=== PATIENT | male | born 1965 | race Caucasian/White ===

== ENCOUNTER → 2017-07-09 13:36 | Outpatient (CLI) | payer BC, SELFPAY ==
--- NOTE | 2017-07-09 13:40 | CA_ITS ---
PROCEDURE: 2-D M-mode and color Doppler study INDICATIONS FOR THE TEST: Chest pain COPD+ Heart Murmur Tobacco Smoking+ Palpitations Fatigue Syncope Edema Hypertension+Diabetes Mellitus Rheumatic Fever SOB+TRINIDAD Obesity+Hyperlipidemia+ Family History HD Additional History cad, stent, CM PATIENT INFORMATION HEIGHT: 64 WEIGHT: 260 GENDER: Male B/P: 120/48 2-D/M-MODE INTERPRETATION: 2-D MEASUREMENTS OBSERVED VALUES IN CMS Right Ventricular Dimension (RVDd) 2.8 Interventricular Septum (Thickness)(IVsd) 1.0 Left Ventricular Internal Dimensions(LVIDd) 4.7 Left Ventricular Posterior Wall (Thickness)(LVPWd) 1.0 Aortic Root 2.0 Aortic Cusp Separation 2.3 Left Atrial Dimensions (LAD) 2.9 2D 1. Left atrium is normal size, left ventricle is normal size, there is no concentric left ventricular hypertrophy, visually estimated ejection fraction 55% with no obvious regional wall motion abnormality, endocardial surfaces are poorly visualized. 2. The right atrium and right ventricle are normal size and contractility. 3. The aortic valve is minimally thickened and fibrosed. 4. The mitral and tricuspid valve leaflets are minimally thickened. 5. Pulmonic valve is poorly visualized. 6. No significant pericardial effusion noted. DOPPLER INTERROGATION: Doppler interrogation of the aortic, mitral and tricuspid valvular presence of mild mitral and tricuspid regurgitation, tricuspid and jet velocity insufficient for calculation of the right ventricular systolic pressure, diastolic parameters are inconclusive. CONCLUSION: 1. Normal left ventricular size, preserved left ventricular systolic function, visually estimated ejection fraction 55% with no obvious regional wall motion abnormality, diastolic parameters are inconclusive. 2. Mild mitral and tricuspid regurgitation 3. No significant pericardial effusion noted.
== END ==
PROVIDERS: PCP Nurse Practitioner Family; Visit Provider Internal Medicine
DX: I42.9 Cardiomyopathy, unspecified (principal)
CPT/HCPCS: 93306

== ENCOUNTER → 2019-06-09 12:27 | Outpatient (CLI) | payer BC, SELFPAY ==
[2019-06-09 14:41] LABS: Chloride 105 mmol/L (98-107); Sodium 142 mmol/L (136-145)
[2019-06-09 14:42] LABS: Potassium 3.9 mmoL/L (3.5-5.1)
[2019-06-09 14:44] LABS: Alanine Aminotransferase 20 U/L (12-78); Albumin Level 4.1 g/dl (3.5-5.0); Alkaline Phosphatase 103 U/L (38-126); Anion Gap 11.9 mEq/L (5-15); Aspartate Amino Transferase 24 U/L (17-59); Bilirubin,Indirect 0.3 mg/dL (0.0-0.9); Bilirubin,Total 0.3 mg/dl (0.2-1.3); Bilirubin,Unconjugated 0.4 mg/dL (0.0-1.1); Blood Urea Nitrogen 10 mg/dl (9-20); Calcium 9.5 mg/dl (8.4-10.2); Carbon Dioxide 29 mmol/L (22.0-30.0); Cholesterol 159 mg/dl (140-200); Estimated Glomerular Filt Rate 70 ml/min (>60); GFR (African American) 84 ML/MIN (>60); Glucose 80 mg/dl (74-100); Total Protein,Serum 7.2 g/dl (6.3-8.2); Triglycerides 157 mg/dl (30-150); VLDL Cholesterol 31 mg/dL (0-40)
[2019-06-09 14:45] LABS: Chol/HDL Ratio 6.9 (1-3.5); HDL Cholesterol 23 mg/dl (40-60)
[2019-06-09 14:56] LABS: Direct LDL Cholesterol 112.93 mg/dL (100-129)
== END ==
PROVIDERS: Visit Provider Internal Medicine Cardiovascular Disease
DX: I25.10 Atherosclerotic heart disease of native coronary artery without angina pectoris (principal); E78.2 Mixed hyperlipidemia; E66.9 Obesity, unspecified
CPT/HCPCS: 36415; 80048; 80061; 80076

== ENCOUNTER → 2019-09-08 12:33 | Outpatient (CLI) | payer BC, SELFPAY ==
[2019-09-08 13:45] LABS: Alanine Aminotransferase 34 U/L (12-78); Albumin Level 4.3 g/dl (3.5-5.0); Alkaline Phosphatase 122 U/L (38-126); Aspartate Amino Transferase 31 U/L (17-59); Bilirubin,Indirect 0.2 mg/dL (0.0-0.9); Bilirubin,Total 0.2 mg/dl (0.2-1.3); Bilirubin,Unconjugated 0.2 mg/dL (0.0-1.1); Chol/HDL Ratio 1.8 (1-3.5); Cholesterol 86 mg/dl (140-200); HDL Cholesterol 49 mg/dl (40-60); Total Protein,Serum 7.4 g/dl (6.3-8.2); Triglycerides 83 mg/dl (30-150); VLDL Cholesterol 17 mg/dL (0-40)
[2019-09-08 13:57] LABS: Direct LDL Cholesterol 43.12 mg/dL (100-129)
== END ==
PROVIDERS: Visit Provider Internal Medicine Cardiovascular Disease
DX: I25.10 Atherosclerotic heart disease of native coronary artery without angina pectoris (principal); I11.9 Hypertensive heart disease without heart failure; E78.5 Hyperlipidemia, unspecified; F17.200 Nicotine dependence, unspecified, uncomplicated; G47.33 Obstructive sleep apnea (adult) (pediatric); Z95.5 Presence of coronary angioplasty implant and graft; Z99.89 Dependence on other enabling machines and devices
CPT/HCPCS: 36415; 80061; 80076

== ENCOUNTER 2020-01-10 14:43 | Emergency (ER) | payer BC, SELFPAY ==
--- NOTE | 2020-01-10 15:09 | XR_ITS ---
PROCEDURE: XR CHEST 2V CLINICAL HISTORY: cough COMPARISON: CR CXR CHEST(2 VIEWS-NOT PORTABLE) from 10/19/2014 CR CXR CHEST(2 VIEWS-NOT PORTABLE) from 03/09/2015 FINDINGS: The cardiomediastinal silhouette and pulmonary vascularity are within normal limits. The lungs are clear without infiltrates, suspicious nodules, or pleural effusions. No acute bony abnormalities. IMPRESSION: No acute findings. Dictated by: Nahum Davila MD 01/10/2020 15:38 Nahum Davila MD in [place] 01/10/2020 15:38
[2020-01-10 15:12] VITALS: BP 163/100; PULSE 82; RESP 18; TEMP 36.8; O2SAT 97; BMI 45.1
[2020-01-10 15:22] VITALS: BP 163/100; PULSE 82; RESP 18; TEMP 36.8; O2SAT 98
--- NOTE | 2020-01-10 15:22 | HMH.EDUTC ---
[facility] [place] Clinical Impression: Encounter for laboratory testing for COVID-19 virus Fever Qualifiers: Fever type: unspecified Qualified Code(s): R50.9 - Fever, unspecified Disposition: Home, Self-Care Condition on Discharge: Good Instructions: DI for Fever (Symptom) -- Adult, Preventing the Spread of Coronavirus Discharge Instructions Additional Instructions: *Monitor Temp, Over the counter Motrin or Tylenol as directed/as needed Tylenol every 4 hours and Motrin every 6 hours (as long as your family doctor has told you that you can take it) for fever or pain. and straight to ER if unable to lower temp less than 101.0 after medication given *Warm salt water gargles may help to soothe the throat *Throat Lozenges *Warm fluids like tea with honey may help to soothe the throat *Sleep elevated *Humidifier/Vaporizer Your throat swab was sent for culture. Those results are typically sent to your primary care. Be sure to follow up in 2-3 days with your family doctor/primary care physician if no improvement so they can review those result and treat if necessary. If you don?t have a primary care doctor, I recommend you get one but in the mean time, you will have to return to a walk in clinic Follow up IMMEDIATELY for new or worsening symptoms or no Noticeable improvement over the next 48-72 hours. 911 for difficulty breathing or swallowing make sure to follow up with your Family Doctor for re-evaluation of blood pressure You was tested for today for COVID19 your test result should be back within the next 48-72 hours, call back to the [facility] to see if your test results are back and the result You was given a handout with instructions for Self Quarantine and Self isolation for while you wait on test results and what to do if they are positive Referrals: Ludmila Lane APRN [Primary Care Provider] - As needed Forms: Work/School Release Medical Decision Making - George Inquiry Pt receiving controlled substance: No George was queried for this patient: No Vital Signs: 01/10/20 15:12 01/10/20 15:22 Temperature 98.3 F 98.3 F Temperature Source Oral Pulse Rate 82 Pulse Rate [Left] 82 Respiratory Rate 18 18 Blood Pressure 163/100 H Blood Pressure [Right Arm] 163/100 H Blood Pressure Mean [Right Arm] 121 Blood Pressure Source [Right Arm] Automatic Cuff Blood Pressure Position [Right Arm] Sitting 02 Sat by Pulse Oximetry 97 Oxygen Delivery Method Room Air - Lab Data Lab Results 01/10/20 15:10: Influenza Type A Ag Negative, Influenza Type B Ag Negative 01/10/20 15:10: Strep Scn Rapid Clinic Negative Orders (Tests/Meds): ORDERS Category Date Time Status Covid-19 Nasal PCR Sendout Robe Stat Lab 01/10/20 15:43 Received Strep Screen Confirmation Stat Micro 01/10/20 15:10 Received - Radiology Data #1 Image(s): Chest Image Reviewed: Yes I have reviewed radiologist's interpretation No acute findings. [facility] [place] - General Stated complaint: fever Time Seen by Provider: 01/10/20 15:23 Mode of Arrival: Ambulatory Source of Information: Significant Other Limitations: No Limitations Description of Symptoms (Recalled from Triage Doc. by RN): Fever and headache HEENT Symptoms (Recalled from RN notes): Yes Resp Symptoms (Recalled from RN notes): Yes Skin Symptoms (Recalled from RN notes): No MS Symptoms (Recalled from RN notes): No Functional Status (Recalled from RN notes): wnl - History of Present Illness Provider Complaint: Patient states that yesterday he had fever and headache States that he was going to go into work today and they wouldnt let him work until he got a COVID test States that he called his family doctor and they wanted him to have a chest xray too States that he has a history of COPD and always has a cough but no more than usual - Related Data Home Medications Medication Instructions Recorded Confirmed albuterol sulfate 90 mcg/actuation 2 inh INHALATION Q4-6H 07/05
[2020-01-10 17:13] LABS: UTC Influenza A Antigen Negative (Negative); UTC Influenza B Antigen Negative (Negative); UTC Strep Screen (Rapid) Negative (Negative)
[2020-01-12 14:19] LABS: Covid-19 Nasal PCR Sendout Lex NOT DETECTED
--- NOTE | 2020-01-14 17:05 | PC.NURSE ---
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
== END 2020-01-10 16:01 | disposition home or self-care (01) ==
PROVIDERS: Emergency Provider Nurse Practitioner; PCP Nurse Practitioner Family
DX: Z20.828 Contact with and (suspected) exposure to other viral communicable diseases (principal); J44.9 Chronic obstructive pulmonary disease, unspecified; I25.10 Atherosclerotic heart disease of native coronary artery without angina pectoris; E78.5 Hyperlipidemia, unspecified; I10 Essential (primary) hypertension; Z79.899 Other long term (current) drug therapy
CPT/HCPCS: 71046; 87804; 87880; 99202; U0004

== ENCOUNTER 2020-02-19 09:41 | Emergency (ER) | payer BC, SELFPAY ==
[2020-02-19 10:20] VITALS: BP 188/85; PULSE 73; RESP 16; TEMP 36.9; O2SAT 95; BMI 44.6
--- NOTE | 2020-02-19 10:21 | HMH.EDUTC ---
[facility] [place] Disposition Clinical Impression: Exposure to COVID-19 virus Disposition: Home, Self-Care Condition on Discharge: Good Instructions: Preventing the Spread of Coronavirus Discharge Instructions Additional Instructions: Drink plenty of fluids. Take tylenol for pain or fever. Follow up with your regular doctor. GO TO THE ER FOR ANY WORSENING SYMPTOMS Referrals: Ludmila Lane APRN [Primary Care Provider] - Forms: Work/School Release Time of Disposition: 10:25 Medical Decision Making - Medical Records Medical records reviewed: No: I reviewed the patient's medical records. - George Inquiry Pt receiving controlled substance: No Vital Signs: 02/19/20 10:20 02/19/20 10:27 Temperature 98.5 F 98.5 F Temperature Source Oral Pulse Rate 73 Pulse Rate [Left Brachial] 73 Respiratory Rate 16 16 Blood Pressure 188/85 H Blood Pressure [Left Arm] 188/85 H Blood Pressure Mean [Left Arm] 119 Blood Pressure Source [Left Arm] Automatic Cuff Blood Pressure Position [Left Arm] Sitting 02 Sat by Pulse Oximetry 95 Oxygen Delivery Method Room Air Orders (Tests/Meds): ORDERS Category Date Time Status Covid-19 Nasal PCR ([facility]) Routine Lab 02/19/20 10:00 Received [facility] [place] HPI - General Stated complaint: covid exposure Time Seen by Provider: 02/19/20 10:21 - History of Present Illness Provider Complaint: He was exposed to covid at his work last week. He denies any symptoms, but he needs to be tested for covid. - Related Data Home Medications Medication Instructions Recorded Confirmed albuterol sulfate 90 mcg/actuation 2 inh INHALATION Q4-6H 07/05/17 07/13/18 breath activated powder inhaler pantoprazole 40 mg tablet,delayed 40 mg PO QAM PRN 09/08/19 release Previous Rx's Medication Instructions Recorded aspirin 81 mg tablet,delayed 81 mg PO DAILY #30 tab 01/25/18 release bisoprolol fumarate 5 mg tablet 5 mg PO DAILY #30 tab 11/08/19 evolocumab 140 mg/mL subcutaneous 140 mg SQ Q2W #2 ml 11/08/19 pen injector losartan 100 1 tab PO DAILY #30 tab 11/08/19 mg-hydrochlorothiazide 12.5 mg tablet Allergies Allergy/AdvReac Type Severity Reaction Status Date / Time diphenhydramine Allergy Intermediate I-HIVES Verified 09/08/19 11:29 [From Benadryl] levofloxacin [From Levaquin] Allergy Intermediate I-HIVES Verified 09/08/19 11:29 atorvastatin [From Lipitor] AdvReac Severe leg pain Verified 09/08/19 11:29 rosuvastatin [From Crestor] AdvReac Severe leg Verified 09/08/19 11:29 cramps, pain, jumping legs [facility] History - Hepatitis A Screen Attestation statement:: This patient has been screened for Hepatitis A risk factors. I have reviewed the patient's past medical history: Yes Medical History: Reports:: Cardiomyopathy, Coronary Artery Disease, Hyperlipidemia, Hypertension Denies:: Cancer, Diabetes Mellitus Type 1, Diabetes Mellitus Type 2, Internal Pacemaker, MRSA Comment: IDALIA-CPAP Laterality Cases: Bilateral: Myringotomy (Ear Tubes), Tonsillectomy Other Surgeries: Yes: Cardiac Catheterization. No: Pacemaker Amputation: No Fractures: No - Social History Smoking Status: Current every day smoker Tobacco Type: cigarettes # Packs/Day (cigarettes): 1 Alcohol Intake: never Alcohol Intake Frequency:: holidays/special occasions only Substance Use Type: denies use Occupational Status: employed Family Hx:: No significant family history ROS Obtained: Yes All systems reviewed & no additional complaints - Constitutional Constitutional: Reports system reviewed and no additional complaints, except as docu - Eyes Eyes: Reports system reviewed and no additional complaints, except as docu - ENT Ears, Nose, Mouth, and Throat: Reports system reviewed and no additional complaints, except as docu - Cardiovascular Cardiovascular: Reports system reviewed and no additional complaints, except as docu - Respiratory Respiratory: Yes s
[2020-02-19 10:27] VITALS: BP 188/85; PULSE 73; RESP 16; TEMP 36.9; O2SAT 95
== END 2020-02-19 10:31 | disposition home or self-care (01) ==
PROVIDERS: Emergency Provider Nurse Practitioner Family; PCP Nurse Practitioner Family
DX: Z20.828 Contact with and (suspected) exposure to other viral communicable diseases (principal); I42.8 Other cardiomyopathies; I25.10 Atherosclerotic heart disease of native coronary artery without angina pectoris; I10 Essential (primary) hypertension; E78.5 Hyperlipidemia, unspecified; F17.210 Nicotine dependence, cigarettes, uncomplicated
CPT/HCPCS: 99201; U0003

== ENCOUNTER → 2020-03-13 08:30 | Outpatient (CLI) | payer BC, SELFPAY | PROVIDERS: PCP Nurse Practitioner Family; Visit Provider Urology | DX: R06.00 Dyspnea, unspecified (principal) | CPT/HCPCS: 93306 ==

== ENCOUNTER → 2020-05-02 14:11 | Outpatient (CLI) | payer BC, SELFPAY ==
[2020-05-02 18:30] LABS: Anion Gap 13.4 mEq/L (5-15); Blood Urea Nitrogen 28 mg/dl (9-20); Calcium 9.5 mg/dl (8.4-10.2); Carbon Dioxide 25 mmol/L (22.0-30.0); Chloride 104 mmol/L (98-107); Estimated Glomerular Filt Rate 49 ml/min (>60); GFR (African American) 59 ML/MIN (>60); Glucose 122 mg/dl (74-100); Potassium 4.4 mmoL/L (3.5-5.1); Sodium 138 mmol/L (136-145)
[2020-05-02 18:39] LABS: NT Pro Brain Natriuretic Pep. 316 pg/mL (0-125)
== END ==
PROVIDERS: Visit Provider Internal Medicine Cardiovascular Disease
DX: R06.00 Dyspnea, unspecified (principal); I25.10 Atherosclerotic heart disease of native coronary artery without angina pectoris; I42.9 Cardiomyopathy, unspecified; I11.9 Hypertensive heart disease without heart failure; E66.9 Obesity, unspecified; E78.2 Mixed hyperlipidemia; F17.200 Nicotine dependence, unspecified, uncomplicated; G47.33 Obstructive sleep apnea (adult) (pediatric); Z95.5 Presence of coronary angioplasty implant and graft; Z99.89 Dependence on other enabling machines and devices
CPT/HCPCS: 36415; 80048; 83880

== ENCOUNTER → 2020-12-16 12:04 | Outpatient (CLI) | payer BC, SELFPAY ==
[2020-12-16 12:22] LABS: Basophils # 0.1 K/mm3 (0-0.2); Basophils % 0.8 % (0.1-2.0); Eosinophils # 0.5 K/mm3 (0.0-0.4); Eosinophils % 5.5 % (0.1-12.0); Hematocrit 46.2 % (42.0-52.0); Hemoglobin 15.4 g/dL (14.1-18.0); Lymphocytes % 23.8 % (10-50); Mean Corpuscular HGB Conc 33.2 g/dL (31.8-35.4); Mean Corpuscular Hemoglobin 30.2 pg (27.0-31.2); Mean Platelet Volume 8.3 fl (7.4-10.4); Monocytes # 0.7 K/mm3 (0.1-1.0); Monocytes % 8.5 % (1.7-9.3); Neutrophils # 5.2 K/mm3 (1.8-7.8); Neutrophils % 61.3 % (37.0-80.0); Platelet Count 209 K/mm3 (142-424); Red Blood Count 5.08 M/mm3 (4.60-6.20); Red Cell Distribution Width 14.5 % (11.5-17.5); White Blood Count 8.6 K/mm3 (4.8-10.8)
[2020-12-16 13:05] LABS: Chloride 105 mmol/L (98-107); Potassium 3.7 mmoL/L (3.5-5.1); Sodium 139 mmol/L (136-145)
[2020-12-16 13:07] LABS: Blood Urea Nitrogen 15 mg/dl (9-20); Estimated Glomerular Filt Rate 63 ml/min (>60); GFR (African American) 76 ML/MIN (>60)
[2020-12-16 13:08] LABS: Alanine Aminotransferase 51 U/L (12-78); Albumin Level 3.9 g/dl (3.5-5.0); Alkaline Phosphatase 103 U/L (38-126); Anion Gap 11.7 mEq/L (5-15); Aspartate Amino Transferase 43 U/L (17-59); Bilirubin,Direct 0.4 mg/dl (0.0-0.4); Bilirubin,Total 0.4 mg/dl (0.2-1.3); Carbon Dioxide 26 mmol/L (22.0-30.0); Chol/HDL Ratio 4.9 (1-3.5); Cholesterol 128 mg/dl (140-200); Glucose 129 mg/dl (74-100); HDL Cholesterol 26 mg/dl (40-60); Total Protein,Serum 6.9 g/dl (6.3-8.2); Triglycerides 188 mg/dl (30-150); VLDL Cholesterol 38 mg/dL (0-40)
[2020-12-16 13:19] LABS: Direct LDL Cholesterol 70.28 mg/dL (100-129)
== END ==
PROVIDERS: Visit Provider Urology
DX: I42.9 Cardiomyopathy, unspecified (principal); I25.10 Atherosclerotic heart disease of native coronary artery without angina pectoris; I11.9 Hypertensive heart disease without heart failure; E78.5 Hyperlipidemia, unspecified; G47.33 Obstructive sleep apnea (adult) (pediatric); F17.200 Nicotine dependence, unspecified, uncomplicated; Z95.5 Presence of coronary angioplasty implant and graft; Z99.89 Dependence on other enabling machines and devices
CPT/HCPCS: 36415; 80048; 80061; 80076; 85025

== ENCOUNTER → 2021-12-29 11:07 | Outpatient (CLI) | payer BC, SELFPAY ==
[2021-12-29 11:47] LABS: Basophils # 0.1 K/mm3 (0-0.2); Basophils % 1.9 % (0.1-2.0); Eosinophils # 0.4 K/mm3 (0.0-0.4); Eosinophils % 4.9 % (0.1-12.0); Hematocrit 50.4 % (42.0-52.0); Hemoglobin 16.6 g/dL (14.1-18.0); Lymphocytes # 1.8 K/mm3 (0.7-4.5); Lymphocytes % 23.8 % (10-50); Mean Corpuscular HGB Conc 32.9 g/dL (31.8-35.4); Mean Corpuscular Hemoglobin 30.3 pg (27.0-31.2); Mean Platelet Volume 8.5 fl (7.4-10.4); Monocytes # 0.9 K/mm3 (0.1-1.0); Monocytes % 11.5 % (1.7-9.3); Neutrophils # 4.3 K/mm3 (1.8-7.8); Neutrophils % 57.8 % (37.0-80.0); Platelet Count 193 K/mm3 (142-424); Red Blood Count 5.48 M/mm3 (4.60-6.20); Red Cell Distribution Width 14.9 % (11.5-17.5); White Blood Count 7.5 K/mm3 (4.8-10.8)
[2021-12-29 12:03] LABS: Alanine Aminotransferase 43 U/L (12-78); Albumin Level 3.8 g/dl (3.5-5.0); Alkaline Phosphatase 128 U/L (38-126); Anion Gap 10.6 mEq/L (5-15); Aspartate Amino Transferase 41 U/L (17-59); Bilirubin,Direct 0.1 mg/dl (0.0-0.4); Blood Urea Nitrogen 8 mg/dl (9-20); Calcium 8.5 mg/dl (8.4-10.2); Carbon Dioxide 26 mmol/L (22.0-30.0); Chloride 104 mmol/L (98-107); Chol/HDL Ratio 7.4 (1-3.5); Cholesterol 178 mg/dl (140-200); Estimated Glomerular Filt Rate 87 ml/min (>60); GFR (African American) 106 ML/MIN (>60); Glucose 165 mg/dl (74-100); HDL Cholesterol 24 mg/dl (40-60); Potassium 3.6 mmoL/L (3.5-5.1); Sodium 137 mmol/L (136-145); Total Protein,Serum 6.8 g/dl (6.3-8.2); Triglycerides 173 mg/dl (30-150); VLDL Cholesterol 35 mg/dL (0-40)
[2021-12-29 12:10] LABS: Bilirubin,Total 0.1 mg/dl (0.2-1.3)
[2021-12-29 12:13] LABS: Direct LDL Cholesterol 111.37 mg/dL (100-129)
== END ==
PROVIDERS: Visit Provider Nurse Practitioner
DX: I25.10 Atherosclerotic heart disease of native coronary artery without angina pectoris (principal); I11.9 Hypertensive heart disease without heart failure; E78.5 Hyperlipidemia, unspecified; F17.200 Nicotine dependence, unspecified, uncomplicated; Z95.5 Presence of coronary angioplasty implant and graft
CPT/HCPCS: 36415; 80048; 80061; 80076; 85025

== ENCOUNTER → 2022-06-30 11:22 | Outpatient (CLI) | payer BC, SELFPAY ==
[2022-06-30 12:45] LABS: Basophils # 0.1 K/mm3 (0-0.2); Basophils % 1.5 % (0.1-2.0); Eosinophils # 0.4 K/mm3 (0.0-0.4); Eosinophils % 4.7 % (0.1-12.0); Hematocrit 52.9 % (42.0-52.0); Hemoglobin 17.5 g/dL (14.1-18.0); Lymphocytes # 1.6 K/mm3 (0.7-4.5); Lymphocytes % 21.4 % (10-50); Mean Corpuscular Hemoglobin 29.7 pg (27.0-31.2); Mean Platelet Volume 8.5 fl (7.4-10.4); Monocytes # 0.8 K/mm3 (0.1-1.0); Monocytes % 10.2 % (1.7-9.3); Neutrophils # 4.7 K/mm3 (1.8-7.8); Neutrophils % 62.2 % (37.0-80.0); Platelet Count 197 K/mm3 (142-424); Red Blood Count 5.87 M/mm3 (4.60-6.20); Red Cell Distribution Width 14.9 % (11.5-17.5); White Blood Count 7.6 K/mm3 (4.8-10.8)
[2022-06-30 13:06] LABS: Alanine Aminotransferase 32 U/L (12-78); Albumin Level 4.2 g/dl (3.5-5.0); Alkaline Phosphatase 119 U/L (38-126); Anion Gap 9.9 mEq/L (5-15); Aspartate Amino Transferase 34 U/L (17-59); Bilirubin,Direct 0.2 mg/dl (0.0-0.4); Bilirubin,Indirect 0.4 mg/dL (0.0-0.9); Bilirubin,Total 0.6 mg/dl (0.2-1.3); Bilirubin,Unconjugated 0.3 mg/dL (0.0-1.1); Blood Urea Nitrogen 12 mg/dl (9-20); Calcium 8.9 mg/dl (8.4-10.2); Carbon Dioxide 29 mmol/L (22.0-30.0); Chloride 101 mmol/L (98-107); Chol/HDL Ratio 8.9 (1-3.5); Cholesterol 214 mg/dl (140-200); Estimated Glomerular Filt Rate 77 ml/min (>60); GFR (African American) 93 ML/MIN (>60); Glucose 117 mg/dl (74-100); HDL Cholesterol 24 mg/dl (40-60); Magnesium 1.9 mg/dl (1.6-2.3); Potassium 3.9 mmoL/L (3.5-5.1); Sodium 136 mmol/L (136-145); Total Protein,Serum 7.3 g/dl (6.3-8.2); Triglycerides 229 mg/dl (30-150); VLDL Cholesterol 46 mg/dL (0-40)
[2022-06-30 13:17] LABS: Direct LDL Cholesterol 139.94 mg/dL (100-129)
== END ==
PROVIDERS: Visit Provider Nurse Practitioner
DX: I25.10 Atherosclerotic heart disease of native coronary artery without angina pectoris (principal); I42.9 Cardiomyopathy, unspecified; I11.9 Hypertensive heart disease without heart failure; E78.2 Mixed hyperlipidemia; F17.200 Nicotine dependence, unspecified, uncomplicated; G47.33 Obstructive sleep apnea (adult) (pediatric); Z95.5 Presence of coronary angioplasty implant and graft; Z99.89 Dependence on other enabling machines and devices
CPT/HCPCS: 36415; 80048; 80061; 80076; 83735; 84439; 84443; 85025

== ENCOUNTER → 2022-07-30 07:33 | Outpatient (CLI) | payer BC, SELFPAY ==
--- NOTE | 2022-07-30 07:36 | CA_ITS ---
FINAL REPORT TECHNIQUE: Grayscale, color Doppler and duplex Doppler ultrasound of the kidneys, aorta and renal arteries was performed. Multiple velocities were measured. CLINICAL HISTORY: HTN, obesity FINDINGS: Aorta velocity: 97 cm/sec Right kidney: 10.0 cm. No evidence of hydronephrosis or mass. Right intrarenal RI: .71 Right renal artery velocity: 166 cm/sec. Right RAR (Renal artery-Aortic Ratio): 1.7 Left Kidney: 10.7 cm. No evidence of hydronephrosis or mass. Left intrarenal RI: .72 Left renal artery velocity: 236 cm/sec. Left RAR (Renal Artery- Ratio): 2.4 IMPRESSION: There is no evidence of renal artery stenosis on the right. Less than 60% renal artery stenosis on the left. CT angiogram or postcontrast MR angiogram would be more sensitive for evaluation of possible renal artery stenosis. Reviewed, Interpreted and Dictated by Kun Wallis III, MD Transcribed by Wendy Pratt Authenticated and [facility]
--- NOTE | 2022-07-30 08:26 | US_ITS ---
FINAL REPORT CLINICAL HISTORY: G47.33 - Obstructive sleep apnea (adult) (pediatric) hypertension FINDINGS: The right kidney measures 9.7 cm in length. There is thinning of the renal cortex. There is no hydronephrosis. The left kidney measures 11.3 cm in length. There is thinning of the renal cortex. There is no hydronephrosis. The spleen is mildly enlarged measuring 13.3 cm. IMPRESSION: Thinning of the renal cortex bilaterally. Mild splenomegaly. Reviewed, Interpreted and Dictated by Kun Wallis III, MD Transcribed by Wendy Pratt Authenticated and [facility]
== END ==
PROVIDERS: PCP Internal Medicine; Visit Provider Nurse Practitioner
DX: I11.9 Hypertensive heart disease without heart failure (principal); I25.10 Atherosclerotic heart disease of native coronary artery without angina pectoris; E78.2 Mixed hyperlipidemia; I42.9 Cardiomyopathy, unspecified; G47.33 Obstructive sleep apnea (adult) (pediatric); F17.200 Nicotine dependence, unspecified, uncomplicated; Z95.5 Presence of coronary angioplasty implant and graft; Z99.89 Dependence on other enabling machines and devices
CPT/HCPCS: 76770; 93976

== ENCOUNTER 2022-08-12 13:53 | Emergency (ER) | payer BC, SELFPAY ==
[2022-08-12 14:20] VITALS: BP 147/68; PULSE 57; RESP 16; TEMP 36.4; O2SAT 96; BMI 44.2
--- NOTE | 2022-08-12 14:29 | EXP.UTC ---
Discharge Plan Disposition Patient Disposition: Home, Self-Care Condition: Good Prescriptions Prescriptions: New Cortisporin-TC 3.3-3-10-0.5 mg/mL drops,suspension 4 drp Ear-Left TID 7 Days Qty: 10 0RF Rx Instructions: apply to (cotton) wick; replace wick every 24 hours amoxicillin [amoxicillin] 875 mg tablet 875 mg PO Q12H Qty: 20 0RF No Action bisoprolol fumarate 10 mg tablet 10 mg PO DAILY Qty: 30 2RF albuterol sulfate [ProAir RespiClick] 90 mcg/actuation aerosol powdr breath activated 2 inh INHALATION Q4-6H valsartan-hydrochlorothiazide 320-25 mg tablet 1 tab PO DAILY Qty: 90 3RF amlodipine 5 mg tablet 5 mg PO DAILY Qty: 90 3RF aspirin [Adult Low Dose Aspirin] 81 mg tablet,delayed release (DR/EC) 81 mg PO DAILY Qty: 30 4RF Repatha SureClick 140 mg/mL pen injector See Rx Instructions .ROUTE .COMPLEX Qty: 2 4RF Dose Instruction: INJECT THE CONTENTS OF 1 SYRINGE 1 TIME EVERY 2 WEEKS DIRECTED Rx Instructions: INJECT THE CONTENTS OF 1 SYRINGE 1 TIME EVERY 2 WEEKS DIRECTED Referrals Follow up/Referrals: Provider,Referral, MD [Primary Care Provider] - See instructions Activity Restrictions/Add. Instructions Additional Instructions/Restrictions: Use the drops as directed and take the oral antibiotics. Go to the er for any worsening symptoms Clinical Impressions Clinical Impression: Cerumen impaction, Left otitis externa Instructions Patient Instructions: How to Instill Ear Drops, DI for Cerumen Impaction, Cerumen Impaction [place] ED Provider: Curry Wade [facility] [place] General Stated complaint: LT ear pain Mode of Arrival: Ambulatory Source of Information: Patient Limitations: No Limitations Time Seen by Provider: 08/12/22 14:29 HEENT Symptoms (Recalled from RN notes): Yes Resp Symptoms (Recalled from RN notes): No Skin Symptoms (Recalled from RN notes): No MS Symptoms (Recalled from RN notes): No Functional Status (Recalled from RN notes): wnl History of Present Illness Provider Complaint: pt c/o L intermittant ear pain x1 month. pt states today it mostly just feels clogged up. Related Data Home Medications Medication Instructions Recorded Confirmed albuterol sulfate 90 mcg/actuation 2 inh inhalation Q4-6H 07/05/17 08/12/22 breath activated powder inhaler (ProAir RespiClick) Previous Rx's Medication Instructions Recorded aspirin 81 mg tablet,delayed 81 mg PO DAILY #30 tabs 01/25/18 release (Adult Low Dose Aspirin) evolocumab 140 mg/mL subcutaneous See Rx Instructions .Route 06/10/22 pen injector (Repatha Geodruidick) .COMPLEX #2 mL valsartan 320 1 tab PO DAILY #90 tabs 06/30/22 mg-hydrochlorothiazide 25 mg tablet bisoprolol fumarate 10 mg tablet 10 mg PO DAILY #30 tabs 07/15/22 amlodipine 5 mg tablet 5 mg PO DAILY #90 tabs 08/12/22 amoxicillin 875 mg tablet 875 mg PO Q12H #20 tabs 08/12/22 [id number] 3.3 4 drp Ear-Left TID 7 days #10 mL 08/12/22 mg-3 mg-10 mg-0.5 mg/mL ear drops,susp (Cortisporin-TC) Allergies Allergy/AdvReac Type Severity Reaction Status Date / Time diphenhydramine Allergy Intermediate I-HIVES Verified 08/12/22 14:23 [From Benadryl] levofloxacin [From Levaquin] Allergy Intermediate I-HIVES Verified 08/12/22 14:23 atorvastatin [From Lipitor] AdvReac Severe leg pain Verified 08/12/22 14:23 rosuvastatin [From Crestor] AdvReac Severe leg Verified 08/12/22 14:23 cramps, pain, jumping legs Worker's Comp Is this a Worker's Comp case?: No [facility] Disclaimer: The information contained in this section may have been updated after the patient was seen, as this information can be updated by other users. Medical History Dyspnea Edema of both lower extremities IDALIA on CPAP Social History Smoking Status: Current every day smoker tobacco type:
[2022-08-12 15:11] VITALS: BP 147/68; PULSE 57; RESP 16; TEMP 36.4
== END 2022-08-12 15:32 | disposition home or self-care (01) ==
PROVIDERS: Emergency Provider Nurse Practitioner Family
DX: H62.42 Otitis externa in other diseases classified elsewhere, left ear (principal); H61.21 Impacted cerumen, right ear; F17.210 Nicotine dependence, cigarettes, uncomplicated; H92.02 Otalgia, left ear
CPT/HCPCS: 69209; 99204; 99212; G0463

== ENCOUNTER → 2022-10-09 15:30 | Outpatient (CLI) | payer BC, SELFPAY ==
[2022-10-09 16:21] LABS: Basophils # 0.1 K/mm3 (0-0.2); Basophils % 0.7 % (0.1-2.0); Eosinophils # 0.4 K/mm3 (0.0-0.4); Eosinophils % 5.3 % (0.1-12.0); Hematocrit 51.7 % (42.0-52.0); Hemoglobin 17.2 g/dL (14.1-18.0); Lymphocytes # 1.9 K/mm3 (0.7-4.5); Lymphocytes % 22.7 % (10-50); Mean Corpuscular HGB Conc 33.2 g/dL (31.8-35.4); Mean Corpuscular Hemoglobin 29.4 pg (27.0-31.2); Mean Corpuscular Volume 88.5 fl (80-94); Mean Platelet Volume 8.4 fl (7.4-10.4); Monocytes # 0.8 K/mm3 (0.1-1.0); Monocytes % 9.8 % (1.7-9.3); Neutrophils % 61.3 % (37.0-80.0); Platelet Count 199 K/mm3 (142-424); Red Blood Count 5.84 M/mm3 (4.60-6.20); Red Cell Distribution Width 14.8 % (11.5-17.5); White Blood Count 8.2 K/mm3 (4.8-10.8)
[2022-10-09 16:36] LABS: Alanine Aminotransferase 27 U/L (12-78); Alkaline Phosphatase 124 U/L (38-126); Aspartate Amino Transferase 27 U/L (17-59); Bilirubin,Indirect 0.3 mg/dL (0.0-0.9); Bilirubin,Total 0.3 mg/dl (0.2-1.3); Bilirubin,Unconjugated 0.4 mg/dL (0.0-1.1); Blood Urea Nitrogen 17 mg/dl (9-20); Calcium 8.9 mg/dl (8.4-10.2); Carbon Dioxide 26 mmol/L (22.0-30.0); Chloride 101 mmol/L (98-107); Chol/HDL Ratio 7.5 (1-3.5); Cholesterol 166 mg/dl (140-200); Estimated Glomerular Filt Rate 62 ml/min (>60); GFR (African American) 76 ML/MIN (>60); Glucose 163 mg/dl (74-100); HDL Cholesterol 22 mg/dl (40-60); Magnesium 1.8 mg/dl (1.6-2.3); Sodium 139 mmol/L (136-145); Total Protein,Serum 7.1 g/dl (6.3-8.2); Triglycerides 287 mg/dl (30-150); VLDL Cholesterol 57 mg/dL (0-40)
[2022-10-09 16:47] LABS: Direct LDL Cholesterol 92.13 mg/dL (100-129)
[2022-10-09 16:53] LABS: Free T4 (Free Thyroxine) 1.17 ng/dl (0.78-2.19)
[2022-10-09 17:07] LABS: Thyroid Stimulating Hormone 2.61 uIU/mL (0.465-4.68)
== END ==
PROVIDERS: Visit Provider Nurse Practitioner
DX: R06.00 Dyspnea, unspecified (principal); I25.10 Atherosclerotic heart disease of native coronary artery without angina pectoris; I42.8 Other cardiomyopathies; I11.9 Hypertensive heart disease without heart failure; R60.0 Localized edema; E78.2 Mixed hyperlipidemia; G47.33 Obstructive sleep apnea (adult) (pediatric); F17.200 Nicotine dependence, unspecified, uncomplicated; Z95.5 Presence of coronary angioplasty implant and graft; Z99.89 Dependence on other enabling machines and devices
CPT/HCPCS: 36415; 80048; 80061; 80076; 83735; 84439; 84443; 85025

== ENCOUNTER → 2023-02-02 14:44 | Outpatient (CLI) | payer BC, SELFPAY ==
--- NOTE | 2023-02-02 14:52 | CA_ITS ---
APPROVED REPORT EXAM: Comprehensive 2D, Doppler, and color-flow Echocardiogram Cash Applications Representative: Nedra Armendariz, JAKY, RVS Ht: 5 ft 4 in Wt: 257lbs BSA: 2.18 BP: 136/59 mmHg Indications: CAD, CM, COPD, Smoker, Obesity, IDALIA, HTN, HLD 2D Dimensions IVSd 1.39 cm LVEF (Visual) 62.00 % PWd 1.32 cm LA Volume 63.60 mL LVDd 5.29 cm LA Volume Index 29.271604 mL/m2 (M/F) 16-34 LVDs 3.51 cm Aortic Root 2.88 cm Left Atrium 4.02 cm LVOT 2.08 cm (M/F) 1.5-2.5 M-Mode Dimensions LA Diam 4.80 cm (1.9-4.0) LVDd 4.67 cm (3.5-5.7) Ao Diam 3.19 cm (2.0-3.7) LVDs 3.26 cm (3.5-5.7) EF (Teich) 57.50% EPSs 0.85 cm FS 30.20% EDV (Teich) 100.80 mL TAPSE 2.91 (<1.7) ESV (Teich) 42.80 mL LV Diastology E Decel Time 183.00 (160-240 msec) E/A Ratio 0.95 MED E' 7.20 (< 7 cm/sec) MED A' 8.00 cm/s E'/MED E' Ratio 11.75 (>14) LAT E' 7.70 (<10 cm/sec) LAT A' 10.50 cm/s E/LAT E' Ratio 10.99 (>14) Aortic Valve LVOT Max 114.00 (70-110 cm/s) LVOT VTI 28.82 cm AoV Peak [place]. 165.00 (50-130 cm/s) AI PHT 564.00 ms AO Peak GR. 10.90 mmHg AO Mean GR. 5.50 (<5 mmHg) AO VTI 38.26 (18-25 cm) EDILSON (VTI) 2.56 (2.5-4.5 cm2) Mitral Valve MV A Velocity 89.00 (40-130 cm/s) E/A Ratio 0.95 MV Decel. Time 183.00 (160-240 ms) Pulmonary Valve PV Peak Velocity 75.00 (50-150 cm/s) Tricuspid Valve TR P. Velocity 199.00 cm/s RAP Estimate 10.00 mmHg RVSP 25.80 mmHg Left Ventricle The left ventricle is normal size. The left ventricular systolic function is normal. The left ventricular ejection fraction is within the normal range. There is increased LV wall thickness (IVSd 1.4-1.5 cm). There is normal LV segmental wall motion. The left ventricular diastolic function is normal. LVEF is 50-55%. Right Ventricle Right ventricle is mildly dilated. The right ventricular systolic function is normal. Atria The left atrium size is normal. The right atrium size is mildly dilated. There is no Doppler evidence of interatrial shunt. Aortic Valve The aortic valve is mildly thickened. There is no aortic valvular stenosis. Mild aortic regurgitation. Mitral Valve The mitral valve leaflets are mildly thickened. No evidence of mitral valve stenosis. Trace mitral regurgitation. Tricuspid Valve The tricuspid valve leaflets are thin and pliable. Trace tricuspid regurgitation. There is insufficient TR jet to estimate RVSP. Pulmonic Valve The pulmonary valve is grossly normal in structure. Trace pulmonic regurgitation. Great Vessels The aortic root is normal in size. The ascending aorta is normal in size. IVC is normal in size and collapses >50% with inspiration. Pericardium There is no pericardial effusion. Other Information Study Quality: Technically Difficult Conclusion This was a technically difficult study due to poor accoustic windows. Normal biventricular systolic function. Increased LV wall thickness (IVSd 1.4-1.5 cm). Mildly dilated RV. Mild AI. Further evaluation for the increased LV wall thickness, including ruling out HCM, is recommended with cardiac MRI (HCM protocol). Electronically signed by : Shraddha Dsouza MD 02/06/2023 13:25:02
== END ==
LOC: RT 14:46
PROVIDERS: PCP Internal Medicine; Visit Provider Physician Assistant
DX: R06.02 Shortness of breath (principal)
CPT/HCPCS: 93306

== ENCOUNTER → 2023-03-09 14:43 | Outpatient (CLI) | payer BC, SELFPAY ==
[2023-03-12 13:00] LABS: Albumin 3.7 g/dL (2.9-4.4); Alpha-1-Globulin 0.2 g/dL (0.0-0.4); Alpha-2-Globulin 0.8 g/dL (0.4-1.0); Gamma Globulin 1.1 g/dL (0.4-1.8); Immunoglobulin A, Qn 144 mg/dL (90-386); Immunoglobulin G, Qn 1216 mg/dL (603-1613); Immunoglobulin M, Qn 92 mg/dL (20-172); Protein, Total 6.8 g/dL (6.0-8.5)
[2023-03-16 09:44] LABS: Free Kappa Lt Chains 39.3
[2023-03-16 09:45] LABS: Free Lambda Lt Chains 35.5
== END ==
LOC: LAB 14:44
PROVIDERS: Visit Provider Internal Medicine
DX: I25.10 Atherosclerotic heart disease of native coronary artery without angina pectoris (principal); I42.2 Other hypertrophic cardiomyopathy; R06.00 Dyspnea, unspecified; E78.5 Hyperlipidemia, unspecified; F17.200 Nicotine dependence, unspecified, uncomplicated
CPT/HCPCS: 82784; 83883; 84155; 84165; 86334

== ENCOUNTER → 2023-03-18 06:34 | Outpatient (CLI) | payer BC, SELFPAY ==
--- NOTE | 2023-03-18 06:45 | NM_ITS ---
APPROVED REPORT Exam: Nuclear Stress Test Indication: OBESITY, HTN, DM, HYPERLIPIDEMIA, C.P., DIZZINESS Patient Location: Outpatient Stress Tech: Amara Palmer ME Tech:Tereza Patterson ARRT RT (R)(N)(M) Ht: 5 ft 4 in Wt: 260 lbs HR: 51 bpm BP: 140/58 mmHg BSA: 2.19 m2 Rhythm: NSR TID: 1.11 BMI: 44.6 History: OBESITY, HTN, DM, HYPERLIPIDEMIA, C.P., DIZZINESS Procedure: Patient received 0.4 mg of intravenous Lexiscan, resting heart rate 51 bpm, resting blood pressure 140/58 mmHg, with Lexiscan maximum heart rate achieved was 71 bpm which is % of the maximum predicted heart rate and blood pressure was 132/63 mmHg. With Lexiscan, patient denied any complaint of chest pain. Cardiac Stress and Resting SPECT Images: Cardiac Stress and Resting SPECT images were obtained using technetium 99m Myoview 31.1 mCi stress and 10.50 mCi at rest. Resting and stress imaging in supine and prone positions demonstrate a large sized, severe, fixed perfusion defect in the apical LV wall. Gated imaging demonstrates mild global LV wall hypokinesis. There is also akinesis of the LV apex. LVEF is calculated at 42%. Conclusion: Large sized, severe, fixed perfusion defect in the apical LV wall. No evidence of reversible ischemia. Gated imaging demonstrates mild global LV wall hypokinesis. There is also akinesis of the LV apex. LVEF is calculated at 42%. Electronically signed by : Shraddha Dsouza MD 03/21/2023 22:18:36
--- NOTE | 2023-03-18 09:27 | CA_ITS ---
APPROVED REPORT Exam: Pharmacologic Technologist: Amara Castro, Ht: 5 ft 4 in Wt: 259 lbs BSA: 2.18 m2 HR: 51 bpm BP: 140/58 mmHg Rhythm: NSR Medical History Medications: Amlodipine,,,,, Aspirin,,,,, Albuterol,,,,, CHlorthalidone,,,,, BisOPROLOL Fumarate,,,,, Evolocumab,,,,, Edarbi,,,,, Cortisporin-TC,,,,, Stress Test Details Test: LEXISCAN Reason for pharmacologic stress test: physical limitation. HR Resting HR: 53 bpm Max Heart Rate (APMHR): 162 bpm Max HR Achieved: 75 bpm Target HR (85% APMHR): 138 bpm % of APMHR: 46 Recovery HR: 62 bpm BP Resting BP: 140/58 mmHg Max BP: 140/58 mmHg Recovery BP: 127.0/56.0 mmHg ECG Resting ECG: sinus bradycardia, delayed R/S transition, PACs Stress ECG: No significant ST changes Arrhythmia: PACs, PVCs Clinical Exercise duration: 03:59 min Highest Stage Achieved: Stress ECG Conclusion Symptoms: Mild SOA, stomach, head discomfort. Arrhythmias/Ectopy: Occasional PACs, PVCs ST-T Changes: No significant ST changes. Conclusion: Unremarkable Lexiscan stress. Myoview images reported separately. Test Summary REST . . . . . . . Resting REST 03:48 . . 53 . 140/ 58 . . Stage 1 01:00 . . 68 . . . . Stage 2 01:00 . . 70 . . . . Stage 3 01:00 . . 69 . 132/ 63 . . Stage 4 00:59 . . 67 . 128/ 59 . Stop exercise at 03:59 RECOVERY 01:00 . . 64 . . . . RECOVERY 02:00 . . 63 . 137/ 54 . . RECOVERY 03:00 . . 62 . 137/ 54 . . RECOVERY 03:20 . . 62 . 127/ 56 . . Electronically signed by : Shraddha Dsouza MD 03/21/2023 22:13:45
== END ==
LOC: RAD 06:37
PROVIDERS: Visit Provider Internal Medicine
DX: I11.9 Hypertensive heart disease without heart failure (principal); I25.10 Atherosclerotic heart disease of native coronary artery without angina pectoris; I42.2 Other hypertrophic cardiomyopathy; Z95.5 Presence of coronary angioplasty implant and graft; E78.5 Hyperlipidemia, unspecified; Z72.0 Tobacco use
CPT/HCPCS: 78452; 93017; 93018; A9502; J2785

== ENCOUNTER → 2023-03-26 08:10 | Outpatient (CLI) | payer BC, SELFPAY ==
--- NOTE | 2023-03-26 08:19 | NM_ITS ---
APPROVED REPORT Commercial Retoucher: Procedure: 99mTc-PYP Cardiac Amyloidosis Imaging Clinical Indication: Heart failure, increased LV wall thickness Protocol: The patient received 24.4 mCi 99mTc-PYP intravenously. Planar and SPECT imaging was performed approximately 3 hours post injection. Planar images included anterior, left lateral and [id number] projections. Findings: Visual interpretation: Planar and SPECT images were reviewed The overall quality of the study was good. Radiotracer blood pooling is noted in the LV, but no uptake in the LV myocardium. Semi quantitative SPECT findings showed a grade 0. Planar imaging demonstrates a heart to contralateral ratio of 1.0 (normal<1.5, equivocal=1.2-1.4, abnormal>1.5). Impression: 1. Overall, the quality of the study was good. 2. Semi quantitative SPECT findings showed grade 0. 3. Overall interpretation of the findings is not suggestive of ATTR amyloidosis. This study and report were reviewed and signed by David Dsouza MD (family law specialist). Conclusion Electronically signed by : Shraddha Dsouza MD 04/12/2023 22:12:37
[2023-03-30 16:13] LABS: Albumin, U 38.5 % (.); Alpha-1-Globulin, U 6.1 % (.); Alpha-2-Globulin, U 17.4 % (.); Beta Globulin, U 25.3 % (.); Gamma Globulin, U 12.6 % (.); M-Spike, % Not Observed % (Not Observed); Prot,24hr calculated 95 mg/24 hr (30-150); Protein,Total,Urine 5.3 mg/dL (Not Estab.)
[2023-03-30 16:13] LABS: Albumin, U 30.7 % (.); Alpha-1-Globulin, U 12.4 % (.); Alpha-2-Globulin, U 11.5 % (.); Beta Globulin, U 28.4 % (.); M-Spike, % Not Observed % (Not Observed); Protein,Total,Urine 5.5 mg/dL (Not Estab.)
== END ==
PROVIDERS: Visit Provider Internal Medicine
DX: R06.00 Dyspnea, unspecified (principal); I42.2 Other hypertrophic cardiomyopathy; I25.10 Atherosclerotic heart disease of native coronary artery without angina pectoris; E78.5 Hyperlipidemia, unspecified; F17.200 Nicotine dependence, unspecified, uncomplicated
CPT/HCPCS: 78800; 84156; 84166; 86335

== ENCOUNTER → 2023-03-31 09:54 | Outpatient (CLI) | payer BC, SELFPAY ==
--- NOTE | 2023-03-31 09:55 | MR_ITS ---
APPROVED REPORT Public Opinion Survey Taker: CLINICAL INDICATION Suspected increased LV wall thickness, history of CAD TECHNIQUE Image Acquisition: Cardiac magnetic resonance (CMR) was performed on Siemens Espree MRI 1.5T scanner. Software platform sequences were performed using the Siemens Aeromot MR B19 platform. A set of three-plane, low-resolution, large [id number]-[id number] localizers were initially acquired. Then axial, coronal, sagittal TrueFISP, as well as axial HASTE images, were obtained. These were followed by gated TrueFISP breathold cinematic sequences obtained in the short axis with 8 mm slices and 2 mm gaps, 2-chamber (vertical long axis), 3-chamber, 4-chamber (horizontal long axis). A bolus of contrast was injected intravenously with first-pass sequences obtained in the short axis and four-chamber planes. After approximately 10 minutes, a TI abrasive mixer helper sequence was performed to determine the optimal TI time. Using the optimized TI time, delayed contrast enhancement segmented inversion???recovery TurboFLASH sequences were obtained in the short axis, 2-chamber, 3-chamber, and 4-chamber projections. 2D-velocity phase mapping was performed. Functional parameters were calculated by offline analysis on an independent workstation ([employer], [employer]). Contrast: ProHance??? (Gadoteridol) FINDINGS MORPHOLOGY AND FUNCTION Left ventricle: The left ventricle is normal in size. The indexed left ventricular end-diastolic volume (LVEDVi) is 73 ml/m2 (reference range 57-105 ml/m2 in males, 56-96 ml/m2 in females). Normal left ventricular systolic function is present. There is normal left ventricular wall thickness (maximum thickness 10.2 mm). There is mild hypokinesis of the distal anterior and apical LV cade. LVEF is calculated at 57.3% (reference range 57-77%). Right ventricle: The right ventricle is normal in size. The indexed right ventricular end-diastolic volume (RVEDVi) is 76 ml/m2 (reference range 61-121 ml/m2 in males, 48-112 ml/m2 in females). Normal right ventricular systolic function is present. RVEF is calculated at 54.0 % (reference range 52-72% in males, 51-71% in females). Atria: The left atrium is normal in size. The maximum indexed left atrial volume is 42 ml/m2 (reference range 26-52 ml/m2 in males, 27-53 ml/m2 in females). The right atrium is normal in size. The maximum indexed right atrial volume is 27 ml/m2 (reference range 18-90 ml/m2). Aorta: The diameter of the aortic annulus is normal, measuring 24 mm (coronal view reference range 21-30 mm in males, 19-27 mm in females). The diameter of the aortic sinus is normal, measuring 31 mm (coronal view reference range 25-42 mm in males, 24-36 mm in females). The diameter of the sinotubular junction is normal, measuring 24 mm (coronal view reference range 18-32 mm in males, 18-28 mm in females). The diameters of the ascending and descending thoracic aorta are normal. Main pulmonary artery: The main pulmonary artery diameter is normal. Pericardium: The pericardial thickness is normal. The pericardial thickness measures 1.7 cm (normal < 4.0 cm). There is no pericardial effusion. VALVES The valvular morphologies in the visualized sequences appear normal. There is no significant valvular stenosis or regurgitation of the mitral, aortic, tricuspid, or pulmonic valve noted visually. Systolic anterior motion of the mitral valve is not visualized. Ratio of pulmonary to systemic flow, Qp:Qs ratio = 1.4 (normal < or = 1.2), demonstrating possible evidence of hemodynamically significant shunt. TISSUE CHARACTERIZATION Resting Perfusion: Normal myocardial blood flow at rest. No evidence of resting hypoperfusion. Myocardial Fibrosis and/or edema: There is subendocardial late gadolinium enhancement
== END ==
PROVIDERS: Visit Provider Internal Medicine
DX: I42.2 Other hypertrophic cardiomyopathy (principal); R06.00 Dyspnea, unspecified; I25.10 Atherosclerotic heart disease of native coronary artery without angina pectoris; I11.9 Hypertensive heart disease without heart failure; E78.5 Hyperlipidemia, unspecified; F17.200 Nicotine dependence, unspecified, uncomplicated; Z95.5 Presence of coronary angioplasty implant and graft
CPT/HCPCS: 75561; A9576

== ENCOUNTER 2023-08-11 14:44 | Outpatient (CLI) | payer BC, SELFPAY ==
[2023-08-11 15:07] LABS: Basophils # 0.1 K/mm3 (0-0.2); Basophils % 1.4 % (0.1-2.0); Eosinophils # 0.3 K/mm3 (0.0-0.4); Eosinophils % 4.7 % (0.1-12.0); Hematocrit 48.6 % (42.0-52.0); Hemoglobin 16.3 g/dL (14.1-18.0); Lymphocytes # 1.5 K/mm3 (0.7-4.5); Lymphocytes % 21.6 % (10-50); Mean Corpuscular HGB Conc 33.6 g/dL (31.8-35.4); Mean Corpuscular Volume 92.1 fl (80-94); Monocytes # 0.6 K/mm3 (0.1-1.0); Monocytes % 8.8 % (1.7-9.3); Neutrophils # 4.5 K/mm3 (1.8-7.8); Neutrophils % 63.5 % (37.0-80.0); Platelet Count 189 K/mm3 (142-424); Red Blood Count 5.28 M/mm3 (4.60-6.20); Red Cell Distribution Width 15.2 % (11.5-17.5)
[2023-08-11 15:41] LABS: Chloride 109 mmol/L (98-107); Potassium 3.8 mmoL/L (3.5-5.1); Sodium 140 mmol/L (136-145)
[2023-08-11 15:43] LABS: Blood Urea Nitrogen 13 mg/dl (9-20); Estimated Glomerular Filt Rate 62 ml/min (>60); GFR (African American) 75 ML/MIN (>60)
[2023-08-11 15:44] LABS: Alanine Aminotransferase 46 U/L (12-78); Albumin Level 3.7 g/dl (3.5-5.0); Alkaline Phosphatase 126 U/L (38-126); Anion Gap 9.8 mEq/L (5-15); Aspartate Amino Transferase 50 U/L (17-59); Bilirubin,Direct 0.3 mg/dl (0.0-0.4); Bilirubin,Indirect 0.1 mg/dL (0.0-0.9); Bilirubin,Total 0.4 mg/dl (0.2-1.3); Bilirubin,Unconjugated 0.1 mg/dL (0.0-1.1); Calcium 9.3 mg/dl (8.4-10.2); Carbon Dioxide 25 mmol/L (22.0-30.0); Chol/HDL Ratio 5.7 (1-3.5); Cholesterol 125 mg/dl (140-200); Glucose 150 mg/dl (74-100); HDL Cholesterol 22 mg/dl (40-60); Total Protein,Serum 6.4 g/dl (6.3-8.2); Triglycerides 178 mg/dl (30-150); VLDL Cholesterol 36 mg/dL (0-40)
[2023-08-11 15:56] LABS: Direct LDL Cholesterol 76.17 mg/dL (100-129)
== END 2023-08-11 23:59 | disposition home or self-care (01) ==
LOC: LAB 14:45
PROVIDERS: PCP Nurse Practitioner; Visit Provider Nurse Practitioner
DX: I11.9 Hypertensive heart disease without heart failure (principal); I25.10 Atherosclerotic heart disease of native coronary artery without angina pectoris; E78.2 Mixed hyperlipidemia; F17.210 Nicotine dependence, cigarettes, uncomplicated
CPT/HCPCS: 36415; 80048; 80061; 80076; 85025

== ENCOUNTER 2024-08-22 15:15 | Outpatient (CLI) | payer BC, SELFPAY ==
[2024-08-22 16:29] LABS: Basophils # 0.1 K/mm3 (0-0.2); Basophils % 0.7 % (0.1-2.0); Eosinophils # 0.4 Kmm3 (0.0-0.4); Eosinophils % 3.9 % (0.1-12.0); Hematocrit 47.1 % (42.0-52.0); Hemoglobin 16.4 g/dL (14.1-18.0); Immature Granulocytes # 0.02 10^3uL; Immature Granulocytes % 0.2 %; Lymphocytes % 20.5 % (10-50); Mean Corpuscular HGB Conc 34.8 g/dL (31.8-35.4); Mean Corpuscular Hemoglobin 30.2 pg (27.0-31.2); Mean Corpuscular Volume 86.7 fl (80-94); Monocytes # 1.1 K/mm3 (0.1-1.0); Monocytes % 11.4 % (1.7-9.3); Neutrophils % 63.3 % (37.0-80.0); Nucleated Red Blood Cells # 0 10^3/uL; Nucleated Red Blood Cells % 0 %; Platelet Count 201 K/mm3 (142-424); Red Blood Count 5.43 M/mm3 (4.60-6.20); Red Cell Distribution Width 14.7 % (11.5-17.5); Red Cell Distribution Width-SD 46.6 fL; White Blood Count 9.6 K/mm3 (4.8-10.8)
[2024-08-22 17:09] LABS: Alanine Aminotransferase 18 U/L (12-78); Albumin Level 4.1 g/dl (3.5-5.0); Alkaline Phosphatase 115 U/L (38-126); Anion Gap 7.5 mEq/L (5-15); Aspartate Amino Transferase 23 U/L (17-59); Bilirubin,Direct 0.2 mg/dl (0.0-0.4); Bilirubin,Indirect 0.3 mg/dL (0.0-0.9); Bilirubin,Total 0.5 mg/dl (0.2-1.3); Bilirubin,Unconjugated 0.3 mg/dL (0.0-1.1); Blood Urea Nitrogen 10 mg/dl (9-20); Calcium 9.3 mg/dl (8.4-10.2); Carbon Dioxide 28 mmol/L (22.0-30.0); Chloride 107 mmol/L (98-107); Chol/HDL Ratio 7.4 (1-3.5); Cholesterol 201 mg/dl (140-200); Estimated Glomerular Filt Rate 76 ml/min (>60); GFR (African American) 93 ML/MIN (>60); Glucose 136 mg/dl (74-100); HDL Cholesterol 27 mg/dl (40-60); Magnesium 1.9 mg/dl (1.6-2.3); Potassium 3.5 mmoL/L (3.5-5.1); Sodium 139 mmol/L (136-145); Total Protein,Serum 6.8 g/dl (6.3-8.2); Triglycerides 165 mg/dl (30-150); VLDL Cholesterol 33 mg/dL (0-40)
[2024-08-22 17:23] LABS: Direct LDL Cholesterol 141.43 mg/dL (100-129)
[2024-08-22 17:31] LABS: Free T4 (Free Thyroxine) 1.05 ng/dl (0.78-2.19)
[2024-08-22 17:43] LABS: Thyroid Stimulating Hormone 2.59 uIU/mL (0.465-4.68)
== END 2024-08-22 23:59 | disposition home or self-care (01) ==
LOC: LAB 15:16
PROVIDERS: Visit Provider Nurse Practitioner
DX: R06.02 Shortness of breath (principal); I10 Essential (primary) hypertension; I25.10 Atherosclerotic heart disease of native coronary artery without angina pectoris; E78.5 Hyperlipidemia, unspecified
CPT/HCPCS: 36415; 80048; 80061; 80076; 83735; 84439; 84443; 85025

== ENCOUNTER 2025-03-12 15:19 | Outpatient (CLI) | payer BC, SELFPAY ==
--- OUTSIDE RECORDS SUMMARY | 2025-03-12 15:22 | XMS_ITS | Data Portability ---
Author Organization [facility] [place] [facility] [place] Address [address] [place] [address] Assessment No assessment recorded. Plan of Treatment Reminders Order Date Submit Date Provider Last Modified By Organization Details Last Modified Time Details Appointments None recorded. Lab rapid flu (A+B) [address], [id number], 4 14:48:02 rapid SARS CoV 2 Ag, QL, [place], upper respiratory specimen [address], [address], 4 14:47:54 urinalysis, dipstick [address], [id number], 4 17:50:23 Referral None recorded. Procedures None recorded. Surgeries None recorded. Imaging XR, chest, 2 view 2023 024 GLYNN Not available 4 16:39:58 home sleep study - first [facility] [address] [facility], [place] [address], [address], 3 13:37:09 Medication Orders doxycycline monohydrate 100 mg capsule 2023 024 BANDERA Erly [facility], [address] [place] [address], [id number], 4 17:13:07 acetaminoph en 500 mg tablet 2023 024 BANDERA Erly [facility], [address] [place] [address], [id number], 4 16:58:02 prednisone 20 mg tablet 2023 024 cox branson Erly [facility], [address] [place] [address], [id number], 4 14:02:37 Augmentin 875 mg-125 mg tablet 2023 024 cox branson Erly [facility], [address] [place] [address], [id number], 4 14:02:40 benzonatate 200 mg capsule 2023 024 cox branson Erly [facility], [address] [place] [address], [id number], 4 14:02:29 Zithromax Z-Jan 250 mg tablet 2022 023 twiedemer 1 Erly [facility], [address] [place] [address], [id number], 3 08:37:10 prednisone 20 mg tablet 2022 023 cox branson Erly [address], [id number], 4 14:02:37 Patient TargetsNo targets recorded. Patient InstructionsNo instructions recorded. Reason for Referral None Reported. Results Created Date Observation Date Name Description Value Unit Range Abnormal Flag Note LastModifiedBy Organization Detail LastModifiedTime 08/17/19 24 08/17/2023 rapid flu (A+B) Flu A negati ve Not Available [address], [address], 08/17/2023 14:18:25 08/17/19 24 08/17/2023 rapid flu (A+B) Flu B negati ve Not Available [address], [address], 08/17/2023 14:18:25 08/17/19 24 08/17/2023 rapid SARS CoV 2 Ag, QL, [place], upper respi rator y speci men SARS CoV Ag negati ve Not Available [address], [address], 08/17/2023 14:18:26 01/28/20 23 home sleep study No observ ation record ed. [facility] [address] [facility] [address], [place], [address], 07/02/2023 12:36:36 08/17/19 24 XR, chest , 2 view No observ ation record ed. Not Available 09/01 15:39:58 Result Notes None recorded. Problems Name Problem SNOMED Code Status Onset Date Resolution Date Notes Provider Name and Address Organization Details Recorded Time Essential hypertension 27377043 Active 2022 Alyce Alford APRN [address] [place], [address], [facility] [employer] 3 09:22:36 Hyperlipidemia 45292378 Active 2022 Alyce Alford APRN [address] [place], [address], [facility] [employer] 3 09:22:38 Problem Notes None recorded. Procedures Surgical History Date Name Laterality Status Provider Name and Address Organization Details Recorded Time 6 placement of stent in cardiac conduit completed Elisa Mattawana [employer] 12/17/2022 11:07:58 Imaging Results None recorded. Procedure Notes None recorded. Medical Equipment None Reported. Allergies Allergen ID Allergen Name Allergen Category Reaction Reaction Severity Criticality Documentation Date Start Date Code Code System Note Provider Name and Address Organization Details Recorded Time 09596 Levaquin medicatio n Not available Not available Not available 12/17/2022 08773 2 RxNorm Elisa Wang gabi [employer] 11:04:32 Medications Name Sig Start Date Stop Date Status Note LastModified by Organization Details LastModified Time azithromyci n 250 mg tablet TAKE 2 TABLETS ON THE FIRST DAY, THEN TAKE 1 TABLET EACH DAY ON THE NEXT 4 DAYS. 03/19 completed Not Available Not Available Not Available benzonatate 200 mg capsule TAKE 1 CAPSULE 3 TIMES EACH DAY NEEDED 08/16 completed Not Available Not Available Not Available prednisone 20 mg tablet TAKE 1 TABLET 3 TIMES EACH DAY FOR 3 DAYS 08/16 completed Not Available Not Available Not Available chlorthalid one 25 mg tablet TAKE 1 TABLET 1 TIME EACH DAY active Not Available Not Available No t Available amlodipine 5 mg tablet TAKE 1 TABLET 1 TIME EACH DAY active Not Available Not Available No t Available acetaminoph en 500 mg tablet Take 2 tablets every 6 hours by oral route as needed, for fever. 2023 active Not Available Not Available Not Avai lable bisoprolol fumarate 10 mg tablet TAKE 1 TABLET 1 TIME EACH DAY active Not Available Not Available No t Available bisoprolol fumarate 5 mg tablet TAKE 1 TABLET 2 TIMES EACH DAY active Not Available Not Available No t Available losartan 100 mg-hydrochl orothiazide 25 mg tablet TAKE 1 TABLET 1 TIME EACH DAY 12/17 completed Not Available Not Available Not Available amoxicillin 875 mg tablet TAKE 1 TABLET EVERY 12 HOURS FOR 10 DAYS 12/17 completed Not Available Not Available Not Available doxycycline monohydrate 100 mg capsule TAKE 1 CAPSULE 2 TIMES EACH DAY FOR 10 DAYS active Not Available Not Available No t Available valsartan 320 mg tablet TAKE 1 TABLET 1 TIME EACH DAY active Not Available Not Available No t Available albuterol sulfate HFA 90 mcg/actuati on aerosol inhaler INHALE 2 PUFFS EVERY 6 HOURS NEEDED OR WHEEZING active Not Available Not Available No t Available amoxicillin 875 mg-potassiu m clavulanate 125 mg tablet TAKE 1 TABLET EVERY 12 HOURS FOR 10 DAYS 08/16 completed Not Available Not Available Not Available neomycin-po lymyxin-hyd rocort 3.5 mg-10,000 unit/mL-1 % ear drops,susp PLACE 4 DROPS INTO THE LEFT EAR TIF FOR 7 DAYS. APPLY TO COTTON WICK> REPLACE WICK EVERY 24 HOURS. 12/17 completed Not Available Not Available Not Available valsartan 320 mg-hydrochl orothiazide 25 mg tablet TAKE 1 TABLET 1 TIME EACH DAY 12/17 completed Not Available Not Available Not Available Edarbi 80 mg tablet TAKE 1 TABLET 1 TIME EACH DAY active Not Available Not Available No t Available Repatha SureClick 140 mg/mL subcutaneou s pen injector INJECT CONTENTS OF 1 SYRINGE EVERY 2 WEEKS DIRECTED active Not Available Not Available No t Available aspirin 81 mg capsule Take 1 capsule every day by oral route. active Not Available Not Available No t Available Vitals Date Recorded Body height Body mass index (BMI) Body weight Body temperature Heart rate Oxygen saturation Systolic And Diastolic Provider Name and Address Organization Details Last Updated DateTime 4 165.1 cm 42.8 kg/m2 170318. 24 g 97.8 [degF] 61 /min 92 % 132/78 mm[Hg] Elisa [employer] 4 16:13:51 Date Recorded Body height Body mass index (BMI) Body weight Body temperature Heart rate Oxygen saturation Systolic And Diastolic Provider Name and Address Organization Details Last Updated DateTime 4 165.1 cm 42.1 kg/m2 569503. 15 g 97.5 [degF] 70 /min 91 % 85/42 mm[Hg] MONALISA CARRILLO [employer] 4 14:02:10 Date Recorded Body weight Body mass index (BMI) Body height Heart rate Oxygen saturation Systolic And Diastolic Provider Name and Address Organization Details Last Updated DateTime 3 431855. 46 g 42.3 kg/m2 165.1 cm 56 /min 93 % 134/80 mm[Hg] Elisa [employer] 11:09:49 Date Recorded Body height Body mass index (BMI) Body weight Systolic And Diastolic Provider Name and Address Organization Details Last Updated DateTime 03/19/2023 165.1 cm 42.6 kg/m2 014126.65 g 137/71 mm[Hg] Elisa Wang [employer] 03/19/2023 08:41:13 Social History Question Answer Notes LastModified by Organizat ion Details LastModified Time Tobacco Smoking Status Current Every Day Smoker Elisa [employer]. 12/17/2022 11:07:17 Is Your Home Air Conditioned? Yes Information not available 12/17/2022 Are You Blind Or Do You Have Difficulty Seeing? No Information n ot available 12/17/2022 Are You A Caregiver? No Information not available 12/17/2022 In The 14 Days Before Symptom Onset, Have You Had Close Contact With A Laboratory-confirm ed COVID-19 While That Case Was Ill? No Information n ot available 12/17/2022 In The 14 Days Before Symptom Onset, Have You Had Close Contact With A Person Who Is Under Investigation For COVID-19 While That Person Was Ill? No Information not available 12/17/2022 Have You Been To An Area Known To Be High Risk For COVID-19? No Information not available 12/17/2022 Are You Deaf Or Do You Have Serious Difficulty Hearing? No Information not available 12/17/2022 Have There Been Any Changes To Your Family Or Social Situation? No Information no t available 12/17/2022 What Was The Date Of Your Most Recent Tobacco Screening? 08/17/2023 smynear Information not available 08/17/2023 What Is Your Current Pack Years? 30ormorepack years Information not available 12/17/2022 What Is Your Relationship Status? Information not available 12/17/2022 Do You Use Your Seat Belt Or Car Seat Routinely? Yes Information not available 12/17/2022 Do You Have Smoke And Carbon Monoxide Detectors In Your Home? Yes Information not available 12/17/2022 How Much Tobacco Do You Smoke? 1 PPD Information not available 12/17/2022 Has Tobacco Cessation Counseling Been Provided? Yes Information not available 12/17/2022 On What Date Was Tobacco Cessation Counseling Provided? 07/12/2023 Information not available 07/12/2023 Have You Recently Traveled Abroad? No Information not available 12/17/2022 Do You Have Difficulty Walking Or Climbing Stairs? No Information not available 12/17/2022 Sex: Male Functional Status Question Answer Note LastModified by Organizat ion Details LastModified Time Do you or have you ever used any other forms of tobacco or nicotine? No Information not available 12/17/2022 What is your level of alcohol consumption? None Information not available 12/17/2022 Do you have transportation difficulties? No Information not available 12/17/2022 Are you able to walk independently without assistance or assistive devices? [employer] Information not available 12/17/2022 Do you have difficulty doing errands alone? No Information not available 12/17/2022 Are you able to care for yourself independently? Yes Information not available 12/17/2022 Do you have difficulty dressing, bathing, grooming, or toileting? No Information not available 12/17/2022 Mental Status Question Answer Note LastModified by Organization D etails LastModified Time Do you have difficulty concentrating, remembering or making decisions? No Information no t available 12/17/2022 Family History Relationship Description Onset Age of this Age Resolved Age Notes LastModified by Organization Details LastModified Time Father No current problems or disability Not available 11/19 11:05:02 Mother No current problems or disability Not available 11/19 11:05:02 Medical History Condition Response High Cholesterol Y Heart Problems Y Hypertension Y Past Encounters Encounter ID Performer Location Encounter Start Date Encounter Closed Date Diagnosis/Indication Diagnosis SNOMED-CT Code Diagnosis ICD10 Code Diagnosis IMO Codes Diagnosis Note [id number] Alyce Alford APRN [address] [place] [address] 12/17/2022 10:23:28 12/17/2022 12:09:40 Acute bronchitis 56668557 J20.9 Obstructiv e sleep apnea syndrome 85528958 G47.33 Cough 77309035 R05.9 Body mass index 40+ - severely obese 698505044 Z68.41 [id number] [place] [address] 03/19/2023 08:30:27 03/19/2023 09:16:49 Essential hypertension 61088972 I10 Hyperlipidemia 49864882 E78.5 Body mass index 40+ - severely obese 768287440 Z68.41 [id number] [place] [address] 07/12/2023 15:56:25 07/12/2023 16:21:58 Lower respiratory tract infection 18874324 J22 Cough 47443932 R05.9 Body mass index 40+ - severely obese 342051423 Z68.41 [id number] [place] [address] 08/17/2023 13:46:55 08/17/2023 15:57:07 Fever 696898828 R50.9 Pt was unable to give urine specimen during visit. RTW 08/19/23. Hydrate, control fever, handwash, rest. Complete antx. Acute exac erbation of chronic obstructive pulmonary disease 944328701 J44.1 I inst pt that if sx should progress, he should proceed to ER or call 911. Stop smoking. Health Concerns Section Related Observation LastModified by Organization Detai ls LastModified Time None Recorded Concern Status LastModified by Organization Details LastModified Time None Recorded Advance Directives Directive None Recorded Payers Insurance Date Sequence Insurance Name Policy Number Policy Bill Covered Member ID Bill Member ID Guarantor Name 01/22/2025 1 [place] [id number] Fabrice Cote [id number] Fabrice Cote Notes Date Note Type Note Provider Name and Address Organization Details Recorded Time 3 text/html pt here today to est PCP. pt states hes doing well on current medication regime. pt c/o a cough and chest congestion for over a week. pt admits to smoking cigs. pt states that his also has a cough. pt doesnt think it is flu or covid and does not want tested. on exam, pt has strong cough, ears, WNL, throat WNL, lungs decreased. ordered abx and steroids. pt staets that he had lab around 1 month ago at [facility]. asked elisa to obtain records. pt also states that he needs a new sleep study in order to get a new machine. pt states that he was dx with sleep apnea around 20 years ago and has wore a machine since but his machine was recalled and [facility] cannot get him a new machine because they have no record of his sleep study. pt states that he snores and has daytime sleepiness if he doesnt wear it. Alyce Alford APRN [address] [place], [address], [employer] 12/17/2022 13:38:49 3 text/html Sleep ProblemsReported by Patient pt here today for medication refills. pt states hes doing well on current medication regime and has no new complaints today. went over sleep study. pt has moderate IDALIA and ordered new machine. pt states that he is still using his old machine that has been recalled. pt is tolerating cpap machine. Alyce Alford APRN [address] [place], [address], [employer] 08/24/2023 16:15:07 4 text/html CoughReported by Patient pt here today with c/o sinus symptoms, chest congestion and cough x3 weeks. pt states that he has been working outside alot for work lately. pt does not want any flu or covid testing. on exam, ears WNL, throat red, lungs with congestion and wheeze, sinuses tender. i will order steroids, abx and cough med. educated pt on new meds. pt voiced understanding. increase fluid intake. return for worsening symptoms. pt is tolerating cpap machine. Alyce Alford APRN [address] [place], [address], [employer] 08/24/2023 16:15:59 4 text/html CoughReported by PatientHPIFor severity, patient reportsworseningandpain with coughbut reportsmoderate. For context, patient reportssmoker(copd). For associated symptoms, patient reportsfever,chills,sputum production,shortness of breath,throat clearing,nasal discharge,muscle pain,tiredness, anddyspneabut reportsno chest pain,no heartburn,no nausea,no vomiting,no edema, andno agitation(painful urination). For quality, patient reportsproductive. For duration, patient reportsacute (<3 weeks). For onset/timing, patient reportssudden,actual date: (08/15/23), andbecomes worse as the day goes on. For modifying factors, patient reportsotc medication.pt is tolerating cpap machine.ROS as noted in the HPI Alyce Alford APRN [address] [place], [address], [employer] 08/24/2023 16:17:50
--- OUTSIDE RECORDS SUMMARY | 2025-03-12 15:22 | XMS_ITS | Clinical Summary ---
[facility] Address [address] [place] [address] Care Team Providers Care Wrap Checker Name Role Phone Provider, No Known Primary Care Provider Unavail able Allergies Active Allergy Reactions Criticality Noted Date Comments Diphenhydramine Hcl Hives Medium 01/18/2018 Levofloxacin Hives Medium 01/18/2018 Medications AmLODIPine Besylate (NORVASC PO) Take by mouth. Active CARVEDILOL PO Take by mouth. Active HYDROCHLOROTHIAZ JOHNNY PO Take by mouth. Active LISINOPRIL PO Take by mouth. Active SIMVASTATIN PO Take by mouth. Active aspirin 81 MG EC tablet Take 81 mg by mouth Daily. Active Social History Tobacco Use Types Packs/Day Years Used Date Smoking Tobacco: Every Day Abuse Screen Answer Date Recorded Unsafe at Home or Work/School Not on file Feels Threatened by Someone? Not on file 01/2023 Does Anyone Keep You from Co ntacting Others or Doint Things Outside the Home? Not on file 01/26/2023 Physical Sign of Abuse Present Not on file 1 Housing Stability Answer Date Recorded Current Living Arrangements Not on file 01/17 Potentially Unsafe Housing Conditions Not on kandy e 01/26/2023 Family and Community Support Answer Roberto e Recorded Help with Day-to-Day Activities Not on file 01/26/2023 Lonely or Isolated Not on file 01/26/2023 Employment Answer Date Recorded Do you want help finding or keeping work or a marlon b? Not on file 01/26/2023 Disabilities Answer Date Recorded Concentrating, Remembering, or Making Decisions Difficulty Not on file 01/26/2023 Doing Errands Independently Difficulty Not on fi le 01/26/2023 Education Answer Date Recorded Help with school or training? Not on file Preferred Language Not on file 01/26/2023 Sex and Gender Information Value Date Recorded Sex Assigned at Not on file Legal Sex Male 1:37 PM EDT Gender Identity Not on file Sexual Orientation Not on file Last Filed Vital Signs Vital Sign Reading Time Taken Comments Blood Pressure 160/96 01/18/2018 3:34 PM EDT Pulse 101 01/18/2018 3:34 PM EDT Temperature 36.7 C (98.1 F) 01/18/2018 3:34 PM EDT Respiratory Rate 15 01/18/2018 3:34 PM EDT Oxygen Saturation 97% 01/18/2018 3:34 PM EDT Inhaled Oxygen Concentration - - Weight 120 kg (265 lb) 01/18/2018 3:34 PM EDT Height 165.1 cm (5' 5 ) 01/18/2018 3:34 PM EDT Body Mass Index 44.1 01/18/2018 3:34 PM EDT Plan of Treatment Health Maintenance Due Date Last Done Comments TDAP/TD VACCINES (1 - Tdap) 01/02/1984 COLOGUARD 2010 COLON CANCER SCREENING 5 YEAR SIGMOIDOSCOPY 2010 COLONOSCOPY 2010 COL[address]AL CANCER SCREENING 2010 CT COLONOGRAPHY 2010 FECAL OCCULT BLOOD TEST 2010 FIT Testing (1 year) 2010 Pneumococcal Vaccine 50+ (1 of 1 - PCV) 2015 ZOSTER VACCINE (1 of 2) 2015 ANNUAL PHYSICAL 01/18/2018 HEPATITIS C SCREENING 01/18/2018 INFLUENZA VACCINE 11/17/2024 Insurance PPO Care Teams Wrap Checker Relationship Specialty Start Date End Date Provider, [place] [address] PCP - General 01/18/18
[2025-03-12 16:49] LABS: Albumin Level 4.0 g/dl (3.5-5.0)
[2025-03-12 16:51] LABS: Bilirubin,Unconjugated 0.2 mg/dL (0.0-1.1)
[2025-03-12 16:52] LABS: Alanine Aminotransferase 23 U/L (12-78); Alkaline Phosphatase 109 U/L (38-126); Aspartate Amino Transferase 25 U/L (17-59); Bilirubin,Direct 0.2 mg/dl (0.0-0.4); Bilirubin,Indirect 0.1 mg/dL (0.0-0.9); Bilirubin,Total 0.3 mg/dl (0.2-1.3); Cholesterol 73 mg/dl (140-200); HDL Cholesterol 27 mg/dl (40-60); Total Protein,Serum 6.9 g/dl (6.3-8.2); Triglycerides 135 mg/dl (30-150)
== END 2025-03-12 23:59 | disposition home or self-care (01) ==
LOC: LAB 15:19
PROVIDERS: Visit Provider Nurse Practitioner
DX: E78.2 Mixed hyperlipidemia (principal); I10 Essential (primary) hypertension
CPT/HCPCS: 36415; 80061; 80076

== ENCOUNTER 2025-04-04 07:59 | Outpatient (CLI) | payer BC, SELFPAY ==
--- NOTE | 2025-04-04 | CA_ITS ---
APPROVED REPORT Exam: Pharmacologic Technologist: Sarahi Holguin Ht: 5 ft 4 in Wt: 258 lbs BSA: 2.18 m2 HR: 55 bpm BP: 112/54 mmHg Indications: Hypertension, Dyspnea on exertion Stress Test Details Test: Lexiscan HR Resting HR: 55 bpm Max Heart Rate (APMHR): 160.032807 bpm Max HR Achieved: 73 bpm Target HR (85% APMHR): 136.546143 bpm % of APMHR: 45.63 Recovery HR: 66 bpm BP Resting BP: 112.0/54.0 mmHg Max BP: 132.0/57.0 mmHg Recovery BP: 112.0/53.0 mmHg ECG Stress ECG Conclusion EKG nondiagnostic - Lexiscan. Electronically signed by : Shraddha Dsouza MD 04/06/2025 13:36:17
--- NOTE | 2025-04-04 08:00 | NM_ITS ---
APPROVED REPORT Exam: Nuclear Stress Test Indication: SOB, HTN, High cholesterol, Tobacco use, Family history, CAD Patient Location: Outpatient Stress Tech: Sarahi Holguin NM Tech:Liliana Crespo, ARRT, RT (R)(N) Ht: 5 ft 4 in Wt: 258 lbs HR: 51 bpm BP: 112/54 mmHg BSA: 2.18 m2 TID: 1.16 BMI: 44.2 History: SOB, HTN, High cholesterol, Tobacco use, Family history, CAD Procedure: Patient received 0.4 mg of intravenous Lexiscan, resting heart rate 51 bpm, resting blood pressure 112/54 mmHg, with Lexiscan maximum heart rate achieved was 73 bpm which is % of the maximum predicted heart rate and blood pressure was 132/57 mmHg. With Lexiscan, patient denied any complaint of chest pain. Cardiac Stress and Resting SPECT Images: Cardiac Stress and Resting SPECT images were obtained using technetium 99m Myoview 30.7 mCi stress and 10.93 mCi at rest. Resting and stress imaging in supine and prone positions demonstrate a medium-sized, severe, partially reversible perfusion defect in the apical LV wall. Gated imaging demonstrates mild reduction in global LV systolic function. LVEF is calculated at 47%. Conclusion: Medium-sized, severe, partially reversible perfusion defect in the apical LV wall. Findings are suggestive of partial reversible ischemia. Gated imaging demonstrates mild reduction in global LV systolic function. LVEF is calculated at 47%. Electronically signed by : Shraddha Dsouza MD 04/06/2025 13:27:55
--- OUTSIDE RECORDS SUMMARY | 2025-04-04 08:06 | XMS_ITS | Data Portability ---
Author Organization [facility] [employer] [place] - [facility] Address [address] [place] [address] Assessment No assessment recorded. Plan of Treatment Reminders Order Date Submit Date Provider Last Modified By Organization Details Last Modified Time Details Appointments None recorded. Lab rapid flu (A+B) [address], [id number], 4 14:48:02 rapid SARS CoV 2 Ag, QL, IA, upper respiratory specimen [address], [address], 4 14:47:54 urinalysis, dipstick [address], [address], 4 17:50:23 Referral None recorded. Procedures None recorded. Surgeries None recorded. Imaging XR, chest, 2 view 2023 024 GLYNN Not available 4 16:39:58 home sleep study - first available appt 2022 023 [facility] [address] [facility], [facility] [address], [address], 3 13:37:09 Medication Orders doxycycline monohydrate 100 mg capsule 2023 024 [facility], [address] [place] [address], [id number], 4 17:13:07 acetaminoph en 500 mg tablet 2023 024 [facility], [address] [place] [address], [id number], 4 16:58:02 prednisone 20 mg tablet 2023 024 [facility], [address] [place] [address], [id number], 4 14:02:37 Augmentin 875 mg-125 mg tablet 2023 024 [facility], [address] [place] [address], [id number], 4 14:02:40 benzonatate 200 mg capsule 2023 024 [facility], [address] [place] [address], [id number], 4 14:02:29 Zithromax Z-Jan 250 mg tablet 2022 023 [email or web address], [address] [place] [address], [id number], 3 08:37:10 prednisone 20 mg tablet 2022 023 [facility] [address], [id number], 4 14:02:37 Patient TargetsNo targets recorded. Patient InstructionsNo instructions recorded. Reason for Referral None Reported. Results Created Date Observation Date Name Description Value Unit Range Abnormal Flag Note LastModifiedBy Organization Detail LastModifiedTime 08/17/19 24 08/17/2023 rapid flu (A+B) Flu A negati ve Not Available [address], [address], 08/17/2023 14:18:25 08/17/19 24 08/17/2023 rapid flu (A+B) Flu B negati ve Not Available [address], [address], 08/17/2023 14:18:25 08/17/19 24 08/17/2023 rapid SARS CoV 2 Ag, QL, IA, upper respi rator y speci men SARS CoV Ag negati ve Not Available [address], [address], 08/17/2023 14:18:26 01/28/20 23 home sleep study No observ ation record ed. [facility] [address] [facility] [address], [place], [address], 07/02/2023 12:36:36 08/17/19 24 XR, chest , 2 view No observ ation record ed. Not Available 09/01 15:39:58 Result Notes None recorded. Problems Name Problem SNOMED Code Status Onset Date Resolution Date Notes Provider Name and Address Organization Details Recorded Time Essential hypertension 05050843 Active 2022 Alyce Alford APRN [address] [place], [address], [facility] [employer] 3 09:22:36 Hyperlipidemia 06608857 Active 2022 Alyce Alford APRN [address] [place], [address], [facility] [employer] 3 09:22:38 Problem Notes None recorded. Procedures Surgical History Date Name Laterality Status Provider Name and Address Organization Details Recorded Time 6 placement of stent in cardiac conduit completed Elisa [place] [employer]. 12/17/2022 11:07:58 Imaging Results None recorded. Procedure Notes None recorded. Medical Equipment None Reported. Allergies Allergen ID Allergen Name Allergen Category Reaction Reaction Severity Criticality Documentation Date Start Date Code Code System Note Provider Name and Address Organization Details Recorded Time 29634 Levaquin medicatio n Not available Not available Not available 12/17/2022 43731 2 RxNorm Elisa Wang gabi [employer], JaschaPete 11:04:32 Medications Name Sig Start Date Stop [...] Updated DateTime 4 165.1 cm 42.8 kg/m2 665155. 24 g 97.8 [degF] 61 /min 92 % 132/78 mm[Hg] Elisa [email or web address] 4 16:13:51 Date Recorded Body height Body mass index (BMI) Body weight Body temperature Heart rate Oxygen saturation Systolic And Diastolic Provider Name and Address Organization Details Last Updated DateTime 4 165.1 cm 42.1 kg/m2 902530. 15 g 97.5 [degF] 70 /min 91 % 85/42 mm[Hg] MONALISA CARRILLO [employer] 4 14:02:10 Date Recorded Body weight Body mass index (BMI) Body height Heart rate Oxygen saturation Systolic And Diastolic Provider Name and Address Organization Details Last Updated DateTime 3 466734. 46 g 42.3 kg/m2 165.1 cm 56 /min 93 % 134/80 mm[Hg] Elisa [email or web address] 11:09:49 Date Recorded Body height Body mass index (BMI) Body weight Systolic And Diastolic Provider Name and Address Organization Details Last Updated DateTime 03/19/2023 165.1 cm 42.6 kg/m2 136470.65 g 137/71 mm[Hg] Elisa Wang [employer]. 03/19/2023 08:41:13 Social History Question Answer Notes LastModified by Organizat ion Details LastModified Time Tobacco Smoking Status Current Every Day Smoker Elisa Wang gabi [email or web address] 12/17/2022 11:07:17 Is Your Home Air Conditioned? [...] ICD10 Code Diagnosis IMO Codes Diagnosis Note [id number] Alyce Alford APRN [address] [place] [address] 12/17/2022 10:23:28 12/17/2022 12:09:40 Acute bronchitis 61498255 J20.9 Obstructiv e sleep apnea syndrome 16729533 G47.33 Cough 38937063 R05.9 Body mass index 40+ - severely obese 348827615 Z68.41 [id number] [place] [address] 03/19/2023 08:30:27 03/19/2023 09:16:49 Essential hypertension 67021112 I10 Hyperlipidemia 27345721 E78.5 Body mass index 40+ - severely obese 333547954 Z68.41 [id number] [place] [address] 07/12/2023 15:56:25 07/12/2023 16:21:58 Lower respiratory tract infection 71521532 J22 Cough 23019274 R05.9 Body mass index 40+ - severely obese 744009883 Z68.41 [id number] [place] [address] 08/17/2023 13:46:55 08/17/2023 15:57:07 Fever 737888347 R50.9 Pt was unable to give urine specimen during visit. RTW 08/19/23. Hydrate, control fever, handwash, rest. Complete antx. Acute exac erbation of chronic obstructive pulmonary disease 776362110 J44.1 I inst pt that if sx [...] Name 01/22/2025 1 [place] [id number] Fabrice Cote [id number] Fabrice Cote Notes Date Note Type Note [...] had lab around 1 month ago at [facility]. asked elisa to obtain records. pt also [...] doesnt wear it. Alyce Alford APRN [address] [place], [address], [employer]. 12/17/2022 13:38:49 3 text/html Sleep ProblemsReported by [...] tolerating cpap machine. Alyce Alford APRN [address] [place], [address], [employer]. 08/24/2023 16:15:07 4 text/html CoughReported by Patient [...] tolerating cpap machine. Alyce Alford APRN [address] [place], [address], [employer] 08/24/2023 16:15:59 4 text/html CoughReported by [...] in the HPI Alyce Alford APRN [address] [place], [address], [employer] 08/24/2023 16:17:50
--- OUTSIDE RECORDS SUMMARY | 2025-04-04 08:06 | XMS_ITS | Clinical Summary ---
[facility] Organization [facility] Address [address] [place] [address] Care Team Providers Care [employer] Salesperson Name Role Phone Provider, No Known Primary [...] INFLUENZA VACCINE 11/17/2024 Insurance PPO Care Teams [employer] Salesperson Relationship Specialty Start Date End Date Provider, [place] [address] PCP - General 01/18/18
[2025-04-04] MEDS: SODIUM CHLORIDE 0.9% 10ML SYR (RAD ONLY) 10 ML IV ×2 (09:41)
[2025-04-04] MEDS: ISOTOPE MYOVIEW (PER STUDY) 1 DOSE IV (09:42)
--- NOTE | 2025-04-04 10:15 | CA_ITS ---
APPROVED REPORT EXAM: Comprehensive 2D, Doppler, and color-flow Echocardiogram Combine Mechanic: Megan Kelley RVT Ht: 5 ft 4 in Wt: 258lbs BSA: 2.18 BP: 123/54 mmHg Indications: DYSPNEA Echo Enhancing Agent Indication: Endocardial border delineation Agent(s) / Amount(s) Used: Definity 2 cc 2D Dimensions LA Volume 27.60 mL LA Volume Index 12.66 mL/m2 (M/F) 16-34 M-Mode Dimensions RVDd 3.12 cm (0.9-2.6) LA Diam 3.88 cm (1.9-4.0) LVDd 5.40 cm (3.5-5.7) LVDs 3.26 cm (3.5-5.7) IVSd 1.07 cm (0.6-1.1) PWd 0.67 cm (0.6-1.1) EF (Teich) 69.70% FS 39.60% EDV (Teich) 141.30 mL TAPSE 2.58 (<1.7) ESV (Teich) 42.80 mL LV Diastology E Decel Time 210 (160-240 msec) E/A Ratio 0.8 Aortic Valve EDILSON Index 1.60 cm2/m2 AoV Peak [place]. 112.0 (50-130 cm/s) AO Peak GR. 5.00 mmHg AO Mean GR. 2.80 (<5 mmHg) AO VTI 24.9 (18-25 cm) EDILSON (VTI) 3.57 (2.5-4.5 cm2) Mitral Valve MV E Max [place]. 73.0 (40-130 cm/s) MV A Velocity 96.0 (40-130 cm/s) E/A Ratio 0.77 MV PHT 62.0 ms Pulmonary Valve PV Peak Velocity 85.0 (50-150 cm/s) Left Ventricle The left ventricle is normal size. Left ventricular systolic function is normal. The left ventricular ejection fraction is within the normal range. There is increased left ventricular wall thickness. There is normal LV segmental wall motion. Transmitral Doppler flow pattern suggests impaired LV relaxation. No left ventricle thrombus noted on this study. LVEF is 55% Right Ventricle The right ventricle is mildly dilated. The right ventricular systolic function is normal. Atria The left atrium is mildly dilated. The right atrium is mildly dilated. There is no color Doppler evidence of interatrial shunt. Aortic Valve The aortic valve is mildly thickened. There is no hemodynamically significant aortic valvular stenosis. Trace aortic regurgitation is present. Mitral Valve The mitral valve is normal in structure. No evidence of mitral valve stenosis. Trace mitral regurgitation is present. Tricuspid Valve The tricuspid valve leaflets are thin and pliable. Trace tricuspid regurgitation. There is insufficient TR jet to estimate RVSP. Pulmonic Valve The pulmonary valve is grossly normal in structure. Trace pulmonic valve regurgitation is present. Great Vessels The aortic root is normal in size. IVC is normal in size and collapses >50% with inspiration. Pericardium There is no pericardial effusion. Other Information Study Quality: Fair Conclusion Normal biventricular systolic function. Mild RV dilation. Biatrial dilation. No significant valvular stenosis or regurgitation. Electronically signed by : Shraddha Dsouza MD 04/08/2025 16:36:18
[2025-04-04] MEDS: DEFINITY US ECHO CONTRAST 2ML INJ 2 MG IV (10:27)
== END 2025-04-04 23:59 | disposition home or self-care (01) ==
PROVIDERS: Visit Provider Nurse Practitioner
DX: I11.9 Hypertensive heart disease without heart failure (principal); E78.00 Pure hypercholesterolemia, unspecified; I25.10 Atherosclerotic heart disease of native coronary artery without angina pectoris; R94.39 Abnormal result of other cardiovascular function study; Z72.0 Tobacco use
CPT/HCPCS: 78452; 93017; 93018; 93306; A9502; J2785; Q9957